=== PATIENT | female | born 1945 | race Caucasian/White ===

== ENCOUNTER 2022-07-22 12:48 | Emergency (ER) | payer OTHER, BC ==
[2022-07-22 13:19] VITALS: BP 153/91; PULSE 80; RESP 16; TEMP 97.8; BMI 21.8
== END 2022-07-22 15:28 | disposition home or self-care (01) ==
LOC: FER 12:48
PROC: 2W3DX1Z Immobilization of Left Lower Arm using Splint (ICD-10-PCS; principal; 2022-07-22)
DX: S52.592A Other fractures of lower end of left radius, initial encounter for closed fracture (principal); W01.0XXA Fall on same level from slipping, tripping and stumbling without subsequent striking against object, initial encounter
CPT/HCPCS: 73030-TC-LT-FY; 73090-TC-LT-FY; 73110-TC-LT-FY; 73130-TC-LT-FY; 99285-25